=== PATIENT | male | born 1970 | race Two or more races ===

== ENCOUNTER 2025-03-14 23:27 | Emergency (ER) | payer OTHER ==
[~2025-03-14] VITALS: Ht 193 cm; Wt 122.7 kg
[2025-03-14 23:40] VITALS: TEMP 98.4
[2025-03-14 23:45] VITALS: PULSE 89; RESP 18; O2SAT 99
[2025-03-15] VITALS: BP 121/78; RESP 18; O2SAT 99
[2025-03-15] MEDS: SODIUM CHLORIDE 0.9% 1,000 ML IV ONE (00:30)
[2025-03-15 00:48] LABS: Hematocrit 48.6 % (41.0-53.0); Hemoglobin 15.6 g/dL (13.5-17.5)
[2025-03-15 00:50] LABS: Mean Corpuscular Hemoglobin 24.5 pg (28.0-32.0); Mean Corpuscular Volume 76.1 fL (80.0-100.0); Nucleated Red Blood Cells % 0.1 %
[2025-03-15 00:56] LABS: Potassium 3.6 mmol/L (3.5-5.1); Sodium 145 mmol/L (136-145)
[2025-03-15 00:57] LABS: Anion Gap 13 (5-15); Carbon Dioxide 24 mmol/L (20-31); Chloride 108 mmol/L (98-107)
[2025-03-15 00:58] LABS: Calcium 9.7 mg/dL (8.7-10.4)
[2025-03-15 01:03] LABS: BUN/Creatinine Ratio 8.1 (10.0-20.0); Blood Urea Nitrogen 8 mg/dL (9-23); Glucose 117 mg/dL (74-106)
[2025-03-15 01:08] VITALS: PULSE 89
--- NOTE | 2025-03-15 01:08 | ED.PDOC ---
History of Present Illness HPI Comments 54 y/o M is BIBA for c/c of syncope. Significant history for prostate cancer - in remission s/p prostatectomy, pneumothorax - left lobe, COPD, HTN, and alcohol abuse. Per EMS personnel report, patient's family called after witnessing the patient having a sudden syncopal episode, while at a friend's home, standing, this morning. CPR initiated by bystanders, due to patient being unresponsive. On scene, patient was found awake, alert, and responsive, admitting to heavy alcohol consumption, earlier, with limited recollection of other events leading up to syncope. At time of assessment, patient reports on still having no recollection of events and is, currently, only emotionally distress after experiencing multiple life stressors, lately. He denies having any headache, weakness, shortness of breath, chest pain, or further acute symptoms. REVIEW OF SYSTEMS: General: No fever, no chills, or fatigue HEENT: No sore throat, no earache, no congestion, no neck pain. Cardiac: Syncope. No chest pain. No palpitations. Lungs: No shortness of breath, no cough. GI: No nausea, no vomiting, no diarrhea, no constipation, no abdominal pain : No dysuria, frequency, or urgency. No hematuria. Musculoskeletal: No joint pain , no joint swelling, no extremity edema. Skin: No rash, no itching. Neuro: No headache, no dizziness, no weakness Psychiatric: Emotional distress PHYSICAL EXAM: General: Awake, alert and oriented. No acute distress. Skin: Skin in warm, dry and intact. Appropriate color for ethnicity. HEENT: The head is normocephalic and atraumatic. Conjunctivae are clear without exudates or hemorrhage. Sclera is non-icteric. EOM are intact. No signs of nystagmus. Eyelids are normal in appearance without swelling or lesions. Oral mucosa is pink and moist Neck: The neck is supple with normal range of motion. No JVD. Cardiac: Heart rate and rhythm are normal. No murmurs, gallops, or rubs are auscultated. Respiratory: No signs of respiratory distress. Lung sounds are clear in all lobes bilaterally without rales, rhonchi, or wheezes. Abdominal: Abdomen is soft, non-tender without distention, guarding or rigidity. Bowel sounds are present and normoactive in all four quadrants. Extremities: Upper and lower extremities are atraumatic in appearance without deformity or edema. Neurological: The patient is awake, alert and oriented to person, place, and time with normal speech. Speech is clear. There is no facial asymmetry. Psychiatric: Appropriate mood and affect. Good judgement and insight. Chief Complaint: Syncope Time Seen by MD: 00:20 Reviewed Notes: Nurses Notes, Meat Carver Notes, Medications, Allergies Allergies: Coded Allergies: NO KNOWN ALLERGIES (Unverified , 03/14/25) Information Source: Patient, Emergency Med Personnel Mode of Arrival: EMS Severity: Moderate Timing: Hours Duration: Minutes Prehospital treatment: 12 Lead EKG, Accucheck (103), Crm Architect Past Medical History PAST MEDICAL HISTORY: Cancer (Prostate cancer s/p prostatectomy), COPD, HTN Past Medical History (Other): Pneumothorax - left lobe Social History Smoker: Non-Smoker Alcohol: Heavy, Occasionally Drugs: Denies Drug Use Lives In: Home Was a procedure done? Was a procedure done?: No EKG EKG : Pulse Rate (adult): 89 Ash: Normal Cardiac Rhythm: NSR Block: None Hypertrophy: None ST: Normal Differential Dx Considerations may include: Differential diagnoses considered include but are not limited to cardiac structural disease, arrhythmia, acute coronary syndrome, orthostasis, pulmonary embolism, dissection, seizure, basilar stroke, other. X-Ray, Labs, Meds, VS Vital Signs Date Time Temp Pulse Resp B/P (MAP) Pulse Ox O2 Delivery O2 Flow Rate FiO2 03/15/25 01:08 89 03/15/25 00:00 88 18 121/78 (92) 99 03/14/25 23:45 89 18 99 Room Air* 0 21 03/14/25 23:43 89 03/14/25 23:40 98.4 89 18 136/91 (106) 99 98.4 03/14/25 23:30 98.3 100 20 160/74 94 98.3 Lab Test 03/15/25 00:38 Range/Units White Blood Count 4.4 4.4-10.8 10^3/uL Red Blood Count 6.39 H 4.5-5.90 10^6/uL Hemoglobin 15.6 13.5-17.5 g/dL Hematocrit 48.6 41.0-53.0 % Mean Corpuscular Volume 76.1 L 80.0-100.0 fL Mean Corpuscular Hemoglobin 24.5 L 28.0-32.0 pg Mean Corpuscular Hemoglobin Concent 32.2 32.0-36.0 g/dL Red Cell Distribution Width 15.3 H 11.8-14.3 % Platelet Count 203 140-450 10^3/uL Mean Platelet Volume 8.2 6.9-10.8 fL Neutrophils (%) (Auto) 57.2 37.0-80.0 % Lymphocytes (%) (Auto) 36.6 10.0-50.0 % Monocytes (%) (Auto) 4.6 0.0-12.0 % Eosinophils (%) (Auto) 0.6 0.0-7.0 % Basophils (%) (Auto) 1.0 0.0-2.0 % Neutrophils # (Auto) 2.5 1.6-8.6 10 ^3/uL Lymphocytes # (Auto) 1.6 0.4-5.4 10 ^3/uL Monocytes # (Auto) 0.2 0-1.3 10 ^3/uL Eosinophils # (Auto) 0 0-0.8 10 ^3/uL Basophils # (Auto) 0 0-0.2 10 ^3/uL Nucleated Red Blood Cells 0.1 % Sodium Level 145 136-145 mmol/L Potassium Level 3.6 3.5-5.1 mmol/L Chloride Level 108 H 98-107 mmol/L Carbon Dioxide Level 24 20-31 mmol/L Anion Gap 13 5-15 Blood Urea Nitrogen 8 L 9-23 mg/dL Creatinine 0.99 0.700-1.30 mg/dL Glomerular Filtration Rate Calc 91 >90 mL/min BUN/Creatinine Ratio 8.1 L 10.0-20.0 Serum Glucose 117 H 74-106 mg/dL Calcium Level 9.7 8.7-10.4 mg/dL Troponin I High Sensitivity < 3 L </=54 ng/L B-Type Natriuretic Peptide 18.13 0-100 pg/mL Time of 1ST Reevaluation: 00:40 Reevaluation 1ST: Unchanged Patient Education/Counseling: Treatment Family Education/Counseling: No Family Present SEPSIS Sepsis Screen Date sepsis recognized/suspect: Mar 14, 2025 Time Sepsis recognized/suspect: 2329 Recent Procedure: No On Antibiotic Therapy: No Respiratory Rate >20: No Heart Rate >90: Yes Temp<36 C (96.8 F) or >38.3 C: No SBP <90 or MAP <65 mmHG: No New Acute Mental Status Change: No Is the patient on CPAP, BIPAP,: No Physician Orders Electrocardigram (03/15/25 00:25) Crm Architect (03/15/25 ) Orthostatic Vital Signs (03/15/25 ) Saline Lock (03/15/25 00:29) Fall Precautions Initiated (03/15/25 00:29) Vital Signs Date Time Temp Pulse Resp B/P (MAP) Pulse Ox O2 Delivery O2 Flow Rate FiO2 03/15/25 01:08 89 03/15/25 00:00 88 18 121/78 (92) 99 03/14/25 23:45 89 18 99 Room Air* 0 21 03/14/25 23:43 89 03/14/25 23:40 98.4 89 18 136/91 (106) 99 98.4 03/14/25 23:30 98.3 100 20 160/74 94 98.3 Laboratory Tests Test 03/15/25 00:38 White Blood Count 4.4 10^3/uL (4.4-10.8) Departure 1 Departure Time of Disposition: 00:48 Impression: Primary Impression: Eloped from emergency department Disposition: LEFT AWOL/ELOPED Condition: Other Comments MDM: Patient was seen and evaluated. Discussed plan of care with the patient. Patient eloped from the emergency department prior to completing workup. The following test were independently interpreted by me: EKG Additional information was gathered from interviewing the following independent historians: EMS personnel Critical Care Note Critical Care Time?: No Stability Stability form required: No Heart Score Heart Score: Heart Score Response (Comments) Value History N/A 0 EKG N/A 0 Age N/A 0 Risk Factors N/A 0 Troponin N/A 0 Total 0 I personally scribed for SCOTT NAVARRO MD ([email or web address]) on 03/15/25 at 01:08. Electronically submitted by Damaso Ryan [email or web address]). SCOTT NAVARRO MD Mar 15, 2025 01:08
--- NOTE | 2025-03-15 07:34 | ECG ---
[facility] Test Date: 2025-03-14 Test Time: 23:43:13 Pat Name: VAL FREIRE Department: [facility] ED Patient ID: [id number] Room: Gender: M D[place]: BRI : 1970 Requested By: SCOTT NAVARRO Order Number: [id number] Reading MD: Isael Swift Measurements Intervals [place] Rate: 89 P: 38 [place]: 167 QRS: -18 QRSD: 100 T: 40 QT: 355 QTc: 432 Interpretive Statements Sinus rhythm Abnormal R-wave progression, early transition Left ventricular hypertrophy Inferior infarct, old Electronically Signed On 03-22-2025 13:15:45 PST by Isael Swift Please click the below link to view image of tracing.
== END 2025-03-15 00:58 | disposition left against medical advice (07) ==
LOC: EDBD 23:27 → ER 23:32
DX: R55 Syncope and collapse (principal); Z90.79 Acquired absence of other genital organ(s); Z79.899 Other long term (current) drug therapy
CPT/HCPCS: 36415; 80048; 82947; 83880; 84484; 85025; 93005